=== PATIENT | female | born 1975 | race Two or more races ===

== ENCOUNTER 2019-04-08 21:00 | Emergency (ER) | payer OTHER ==
[~2019-04-08] VITALS: Ht 162.6 cm; Wt 61.2 kg
[~2019-04-08 21:00] MED LIST: LEVO100T PO
--- NOTE | 2019-04-08 21:24 | NUR ---
BIBS FROM HOME W/ DAUGHTER AT BEDSIDE. TO ER BED 10. AAOX4. NO RESP DISTRESS NOTED. ANXIOUS. C/O MIDSTERNAL CHEST PAIN RAIDATING ON L ARM THAT STARTED @ 7PM. PT REPORTS THAT SENSATION IS PRESSURE AND TIGHTNESS IF SOMEONE IS CHOKING HER. RATED 9/10. PT ALSO REPORTS THAT SHE FEEL SOB BUT BREATHING EVEN AND UNLABORED WITH SAT AT 98%. PT PLACED ON MONITOR. MALLORY GRIFFITH AT BEDSIDE FOR EVAL. AWAITING FURTHER ORDERS. IV LINE OBTAINED ON THE R AC 18G. BLOOD DRAWN AND GIVEN TO MANAGER BODY AT BEDSIDE.
[2019-04-08 21:27] LABS: BASOPHILS % (AUTO) 0.5 % (0.0-2.0); EOSINOPHILS % (AUTO) 0.6 % (0.0-6.0); HEMATOCRIT 39 % (33-45); HEMOGLOBIN 12.8 g/dL (11.5-14.8); LYMPHOCYTES # (AUTO) 1.8 /CMM (0.8-4.8); LYMPHOCYTES % (AUTO) 32.4 % (20.0-44.0); MEAN CORPUSCULAR HGB CONC 33 g/dl (31.0-36.0); MEAN CORPUSCULAR VOLUME 90 fL (82-100); MONOCYTES # (AUTO) 0.5 /CMM (0.1-1.30); MONOCYTES % (AUTO) 8.6 % (2.0-12.0); NEUTROPHILS # (AUTO) 3.3 /CMM (1.8-8.9); NEUTROPHILS % (AUTO) 57.9 % (43.0-81.0); PLATELET COUNT (AUTO) 258 /CMM (150-450); RED BLOOD CELL COUNT(AUTO) 4.28 MIL/uL (4.0-5.2); WHITE BLOOD COUNT (AUTO) 5.7 K/uL (4.3-11.0)
[2019-04-08 21:36] LABS: CARBON DIOXIDE 29 mmol/L (21-32); CHLORIDE 104 mmol/L (98-107); CREATININE 0.7 mg/dL (0.6-1.3); GLUCOSE 120 mg/dL (74-106); POTASSIUM 3.4 mmol/L (3.5-5.1); SODIUM SERUM 140 mmol/L (136-145); UREA NITROGEN, BLOOD 11 mg/dL (7-18)
--- NOTE | 2019-04-08 21:37 | NUR ---
XRAY DONE AT BEDSIDE
[2019-04-08 21:43] LABS: ALANINE AMINOTRANSFERASE 29 U/L (12-78); ALBUMIN 3.9 g/dL (3.4-5.0); ALKALINE PHOSPHATASE 37 U/L (46-116); ASPARTATE AMINOTRANSFERASE 19 U/L (15-37); BILIRUBIN,TOTAL 0.3 mg/dL (0.2-1.0); TOTAL PROTEIN, SERUM 7.7 g/dL (6.4-8.2)
--- NOTE | 2019-04-08 22:48 | NUR ---
Patient discharged to home in stable condition. Written and verbal after care instructions given. Patient verbalizes understanding of instruction.IV removed. Catheter intact and site benign. Pressure and 4x4 applied to site. No bleeding noted. Pt ambulatory with a steady gait
[2019-04-08 22:49] VITALS: BP 129/86
[2019-04-09] MEDS ORDERED: ONDANSETRON HCL/PF 4 MG/2 ML VIAL ONE (02:54)
[2019-04-09] MEDS ORDERED: MORPHINE SULFATE INJ 4 MG/ML DISP.SYRIN ONE (02:54)
== END 2019-04-08 22:49 | disposition home or self-care (01) ==
LOC: ER 21:02
DX: R07.89 Other chest pain (principal); E03.9 Hypothyroidism, unspecified; Z98.890 Other specified postprocedural states; Z79.899 Other long term (current) drug therapy
CPT/HCPCS: 36415; 71045-TC; 80048-TC; 80076-TC; 84484-TC; 85025-TC; J2270; J2405